=== PATIENT | male | born 2005 | race Caucasian/White ===

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

== ENCOUNTER 2023-10-29 13:54 | Outpatient (CLI) | payer OTHER | END 2023-10-29 13:55 | disposition home or self-care (01) | LOC: SCSMRI 13:54 | PROVIDERS: ATTEND Family Medicine | DX: H54.7 Unspecified visual loss (principal) | CPT/HCPCS: 70551 ==